=== PATIENT | male | born 1930 | race Caucasian/White ===

== ENCOUNTER 2016-05-25 16:30 | Emergency (ER) | payer OTHER ==
[~2016-05-25 16:30] MED LIST: BABY81CH PO; LISI-363 PO; METO50TA OR; PRAV10 OR; TOBRA.3%O RIGHT EYE; WARF6 PO
[2016-05-25 16:35] VITALS: BP 191/97; PULSE 83; RESP 16; TEMP 98; O2SAT 95
[2016-05-25 16:52] VITALS: RESP 18; O2SAT 96
--- NOTE | 2016-05-25 16:56 | PD ---
HPI Chief Complaint: Respiratory Distress Time Seen by Provider: 16:44 Travel History International Travel<30 days: No Contact w/Intl Traveler<30days: No Traveled to known affect area: No History of Present Illness HPI 86-year-old male presents with shortness of breath when he ambulates. He states that he thought it would get better this afternoon but when it didn't he took his blood pressure and given it was high and he felt short of breath he elected to come [facility] He states that he has no chest pain or other concurrent complaints. He denies any shortness of breath at rest. He denies other modifying factors. He states he had his Coumadin checked recently and it was okay. He states he follows with his primary regularly. He states he last saw his concrete vault maker about January and had an okay check. He states Dr. Langston is his concrete vault maker. PFSH Past Medical History Hx Anticoagulant Therapy: Yes Atrial Fibrillation: Yes Cardiovascular Problems: Yes High Cholesterol: Yes Diminished Hearing: No Hypertension: Yes Inguinal Hernia: Yes (LEFT SIDE 4 YEARS AGO) PNEUMOCCOCAL Vaccine (Year): 1 ?: Not Past Surgical History Abdominal Surgery: Yes (LEFT INGUINAL HERNIA) Tonsillectomy: Yes Other Surgery: Yes (SKIN CANCER ON NOSE) Social History Alcohol Use: No Tobacco Use: No Substance Use: No Allergies-Medications (Allergen,Severity, Reaction): Coded Allergies: Naprosyn (Verified Allergy, Severe, hives, 05/25/16) Aspirin (Verified Adverse Reaction, Severe, blood noted in urine had to stop taking a week ago, 05/25/16) CLIENT STATES HE HAS HAD NOPROBLEMS WITH ASPIRIN Reported Meds & Prescriptions Reported Meds & Active Scripts Active Tobrex Opth Soln (Tobramycin Sulfate) 0.3 % Soln 2 Drop RIGHT EYE Q4 7 Days Reported Baby Aspirin (Aspirin) 81 Mg Chw 81 Mg PO Metoprolol Tartrate 50 Mg Tab 50 Mg OR DAILY Pravastatin Sodium 10 Mg Tab 20 Mg OR DAILY Lisinopril 20 Mg Tab 20 Mg PO BID Coumadin (Warfarin Sodium) 6 Mg Tab 6 Mg PO DAILY Review of Systems Except as stated in HPI: all other systems reviewed are Neg Physical Exam Narrative GENERAL: Well-nourished, well-developed patient. SKIN: Warm and dry. HEAD: Normocephalic and atraumatic. EYES: No injection or drainage. ENT: No nasal drainage noted. NECK: Supple, trachea midline. CARDIOVASCULAR: irregular rate and rhythm RESPIRATORY: Breath sounds equal bilaterally at apices. No accessory muscle use. GASTROINTESTINAL: Abdomen soft, non-tender, nondistended. NEUROLOGICAL: Awake and alert. Moves all extremities. Normal speech. Data Data Last Documented VS Vital Signs Date Time Temp Pulse Resp B/P Pulse Ox O2 Delivery O2 Flow Rate FiO2 05/25/16 18:20 69 18 178/94 96 Room Air 05/25/16 16:35 98.0 Orders Complete Blood Count With Diff (05/25/16 16:51) Comprehensive Metabolic Panel (05/25/16 16:51) B-Type Natriuretic Peptide (05/25/16 16:51) Act Partial Throm Time (Ptt) (05/25/16 16:51) Prothrombin Time / Inr (Pt) (05/25/16 16:51) Magnesium (Mg) (05/25/16 16:51) Ckmb (Isoenzyme) Profile (05/25/16 16:51) Troponin I (05/25/16 16:51) Iv Access Insert/Monitor (05/25/16 16:51) Electrocardiogram (05/25/16 16:51) Ecg Monitoring (05/25/16 16:51) Oximetry (05/25/16 16:51) Chest, Single Ap (05/25/16 16:51) Sodium Chloride 0.9% Flush (Ns Flush) (05/25/16 17:00) CKMB (05/25/16 17:00) CKMB% (05/25/16 17:00) Labs Laboratory Tests Test 05/25/16 17:00 White Blood Count 5.8 TH/MM3 Red Blood Count 4.21 MIL/MM3 Hemoglobin 12.2 GM/DL Hematocrit 38.2 % Mean Corpuscular Volume 90.7 FL Mean Corpuscular Hemoglobin 29.1 PG Mean Corpuscular Hemoglobin 32.1 % Concent Red Cell Distribution Width 14.1 % Platelet Count 146 TH/MM3 Mean Platelet Volume 9.7 FL Neutrophils (%) (Auto) 50.9 % Lymphocytes (%) (Auto) 29.0 % Monocytes (%) (Auto) 12.3 % Eosinophils (%) (Auto) 6.8 % Basophils (%) (Auto) 1.0 % Neutrophils # (Auto) 3.0 TH/MM3 Lymphocytes # (Auto) 1.7 TH/MM3 Monocytes # (Auto) 0.7 TH/MM3 Eosinophils # (Auto) 0.4 TH/MM3 Basophils # (Auto) 0.1 TH/MM3 CBC Comment DIFF FINAL Differential Comment Prothrombin Time 23.7 SEC Prothromb Time International 2.1 RATIO Ratio Activated Partial 36.1 SEC Thromboplast Time Sodium Level 140 MEQ/L Potassium Level 4.3 MEQ/L Chloride Level 103 MEQ/L Carbon Dioxide Level 29.5 MEQ/L Anion Gap 8 MEQ/L Blood Urea Nitrogen 25 MG/DL Creatinine 1.33 MG/DL Estimat Glomerular Filtration 51 ML/MIN Rate Random Glucose 139 MG/DL Calcium Level 8.9 MG/DL Magnesium Level 2.0 MG/DL Total Bilirubin 2.8 MG/DL Aspartate Amino Transf 40 U/L (AST/SGOT) Alanine Aminotransferase 28 U/L (ALT/SGPT) Alkaline Phosphatase 102 U/L Total Creatine Kinase 279 U/L Creatine Kinase MB 3.1 NG/ML Troponin I 0.02 NG/ML Total Protein 7.3 GM/DL Albumin 3.7 GM/DL MDM Medical Decision Making Medical Screen Exam Complete: Yes Emergency Medical Condition: Yes Medical Record Reviewed: Yes (past history confirmed) Interpretation(s) EKG is A. fib at 80, no STEMI criteria, right bundle branch block Differential Diagnosis Anemia, renal failure, heart failure, anginal quibbling Narrative Course Will check blood work, chest x-ray, EKG and monitor Physician Communication Physician Communication dr traylor to follow bnp and likely dc as patient not wanting cardiac workup in hospital Bekah Mei MD May 25, 2016 16:56
[2016-05-25] MEDS ORDERED: SODIUM CHLORIDE 0.9% FLUSH 10 ML FLUSH IVF PRN (17:00)
[2016-05-25 17:18] LABS: BASOPHIL # 0.1 TH/MM3 (0-0.2); EOSINOPHIL # 0.4 TH/MM3 (0-0.4); EOSINOPHIL % 6.8 % (0.0-4.0); HEMATOCRIT 38.2 % (39.0-51.0); HEMO FLAGS DIFF FINAL; LYMPHOCYTE # 1.7 TH/MM3 (1.0-4.8); MEAN CELL VOLUME 90.7 FL (80.0-100.0); MEAN CORPUSCULAR HEMOGLOBIN 29.1 PG (27.0-34.0); MEAN CORPUSCULAR HGB CONC 32.1 % (32.0-36.0); MONO % 12.3 % (0.0-8.0); NEUT % 50.9 % (16.0-70.0); PLATELET COUNT 146 TH/MM3 (150-450); RED BLOOD COUNT 4.21 MIL/MM3 (4.50-5.90); RED CELL DISTRIBUTION WIDTH 14.1 % (11.6-17.2); WHITE BLOOD COUNT 5.8 TH/MM3 (4.0-11.0)
[2016-05-25 17:23] LABS: APTT (PATIENT) 36.1 SEC (24.3-30.1); INTERNATIONAL NORMALIZED RATIO 2.1 RATIO; PROTHROMBIN TIME - PATIENT 23.7 SEC (9.8-11.6)
[2016-05-25 17:43] VITALS: BP 155/82; PULSE 72; RESP 18; O2SAT 96
[2016-05-25 17:44] LABS: ANION GAP 8 MEQ/L (5-15); AST (GOT) 40 U/L (15-37); BICARBONATE 29.5 MEQ/L (21.0-32.0); BLOOD UREA NITROGEN 25 MG/DL (7-18); CHLORIDE 103 MEQ/L (98-107); GLOMERULAR FILTRATION RATE 51 ML/MIN (>89); POTASSIUM 4.3 MEQ/L (3.5-5.1); SODIUM (NA) 140 MEQ/L (136-145)
[2016-05-25 17:48] LABS: ALKALINE PHOSPHATASE 102 U/L (45-117); ALT (GPT) 28 U/L (12-78); CREATINE KINASE 279 U/L (39-308); TOTAL BILIRUBIN ADULT 2.8 MG/DL (0.2-1.0)
[2016-05-25 18:01] LABS: CKMB 3.1 NG/ML (0.5-3.6)
--- NOTE | 2016-05-25 18:01 | RADRPT ---
EXAM DATE/TIME: 05/25/2016 17:06 [facility] COMPARISON: No previous studies available for comparison. INDICATIONS : Shortness of breath. MEDICAL HISTORY : Hypertension. A-Fib SURGICAL HISTORY : None. ENCOUNTER: Initial ACUITY: 1 day PAIN SCORE: 0/10 LOCATION: Bilateral chest FINDINGS: A single view of the chest demonstrates the lungs to be symmetrically aerated without evidence of mas s, infiltrate or effusion. Minimal scarring in the lungs. The cardiomediastinal contours are unremar kable except atherosclerotic and mildly tortuous aorta. Osseous structures are intact. CONCLUSION: 1. Minimal scarring in the lungs. No effusion or pneumothorax. Mildly tortuous aorta. Jamal Keane MD on May 25, 2016 at 17:59 Board Certified Radiologist. This report was verified electronically.
[2016-05-25 18:20] VITALS: BP 178/94; PULSE 69; RESP 18; O2SAT 96
--- NOTE | 2016-05-25 19:15 | PD ---
Data Data Last Documented VS Vital Signs Date Time Temp Pulse Resp B/P Pulse Ox O2 Delivery O2 Flow Rate FiO2 05/25/16 19:36 73 21 175/89 96 Room Air 05/25/16 16:35 98.0 Orders Complete Blood Count With Diff (05/25/16 16:51) Comprehensive Metabolic Panel (05/25/16 16:51) B-Type Natriuretic Peptide (05/25/16 16:51) Act Partial Throm Time (Ptt) (05/25/16 16:51) Prothrombin Time / Inr (Pt) (05/25/16 16:51) Magnesium (Mg) (05/25/16 16:51) Ckmb (Isoenzyme) Profile (05/25/16 16:51) Troponin I (05/25/16 16:51) Iv Access Insert/Monitor (05/25/16 16:51) Electrocardiogram (05/25/16 16:51) Ecg Monitoring (05/25/16 16:51) Oximetry (05/25/16 16:51) Chest, Single Ap (05/25/16 16:51) Sodium Chloride 0.9% Flush (Ns Flush) (05/25/16 17:00) CKMB (05/25/16 17:00) CKMB% (05/25/16 17:00) Labs Laboratory Tests Test 05/25/16 17:00 White Blood Count 5.8 TH/MM3 Red Blood Count 4.21 MIL/MM3 Hemoglobin 12.2 GM/DL Hematocrit 38.2 % Mean Corpuscular Volume 90.7 FL Mean Corpuscular Hemoglobin 29.1 PG Mean Corpuscular Hemoglobin 32.1 % Concent Red Cell Distribution Width 14.1 % Platelet Count 146 TH/MM3 Mean Platelet Volume 9.7 FL Neutrophils (%) (Auto) 50.9 % Lymphocytes (%) (Auto) 29.0 % Monocytes (%) (Auto) 12.3 % Eosinophils (%) (Auto) 6.8 % Basophils (%) (Auto) 1.0 % Neutrophils # (Auto) 3.0 TH/MM3 Lymphocytes # (Auto) 1.7 TH/MM3 Monocytes # (Auto) 0.7 TH/MM3 Eosinophils # (Auto) 0.4 TH/MM3 Basophils # (Auto) 0.1 TH/MM3 CBC Comment DIFF FINAL Differential Comment Prothrombin Time 23.7 SEC Prothromb Time International 2.1 RATIO Ratio Activated Partial 36.1 SEC Thromboplast Time Sodium Level 140 MEQ/L Potassium Level 4.3 MEQ/L Chloride Level 103 MEQ/L Carbon Dioxide Level 29.5 MEQ/L Anion Gap 8 MEQ/L Blood Urea Nitrogen 25 MG/DL Creatinine 1.33 MG/DL Estimat Glomerular Filtration 51 ML/MIN Rate Random Glucose 139 MG/DL Calcium Level 8.9 MG/DL Magnesium Level 2.0 MG/DL Total Bilirubin 2.8 MG/DL Aspartate Amino Transf 40 U/L (AST/SGOT) Alanine Aminotransferase 28 U/L (ALT/SGPT) Alkaline Phosphatase 102 U/L Total Creatine Kinase 279 U/L Creatine Kinase MB 3.1 NG/ML Troponin I 0.02 NG/ML B-Type Natriuretic Peptide 462 PG/ML Total Protein 7.3 GM/DL Albumin 3.7 GM/DL MDM Supervised Visit with HARLEY: No Differential Diagnosis Patient signed out to me by previous provider. Please see associated no for further details. Intra-patient is a 86-year-old male with shortness of breath when ambulating, high blood pressure at home. No associated chest pain, no shortness of breath at rest. He sees Dr. Simon for cardiology. Previous provider had concern for possible new onset failure. EKG, laboratory workup and chest x-ray were unremarkable. BNP remains pending at the time this dictation patient signed out to me awaiting results of same. Patient wants to go home, and does not want any provocative testing. If BNP elevated, discharged to home with addition of Lasix outpatient cardiology follow-up. BNP was 462. Patient is requesting discharge to home. He will ambulate without any overt dyspnea. Narrative Course Diagnosis Primary Impression: Dyspnea Qualified Code: R06.09 - Dyspnea on exertion Referrals: Darshan Simon MD call for appointment Patient Instructions: Dyspnea (ED), General Instructions Additional Instruction: Continue home medications as prescribed. Call wirer helper for outpatient follow-up. Return to the ER for the warning signs discussed. Med/Other Pt SpecificInfo: No Change to Meds Disposition: 01 DISCHARGE HOME Condition: Stable Lisy Wei MD May 25, 2016 19:15
[2016-05-25 19:22] VITALS: BP 182/88; PULSE 62; RESP 20; O2SAT 96
[2016-05-25 19:36] VITALS: BP 175/89; PULSE 73; RESP 21; O2SAT 96
--- NOTE | 2016-05-26 10:40 | EKG ---
Date Performed: 05/25/2016 Time Performed: 16:59:13 PTAGE: 86 years EKG: ATRIAL FIBRILLATION RIGHT BUNDLE BRANCH BLOCK LEFT ANTERIOR FASCICULAR BLOCK ABNORMAL ECG PREVIOUS TRACING : 11/23/2009 11.55 DOCTOR: Justin Boyle Interpretating Date/Time 05/26/2016 10:36:44
== END 2016-05-25 19:59 | disposition home or self-care (01) ==
LOC: NEPE 16:30
DX: R06.09 Other forms of dyspnea (principal); I48.91 Unspecified atrial fibrillation; I10 Essential (primary) hypertension
CPT/HCPCS: 71010; 80053; 82550; 82552; 83735; 83880; 84484; 85025; 85610; 85730; 93005

== ENCOUNTER → 2016-09-23 | Outpatient (CLI) | payer OTHER ==
--- NOTE | 2016-10-01 09:40 | RSPPFT ---
DATE OF PROCEDURE: 09/23/16 COMMENTS: Spirometry with FVC of 2.1, FEV1 of 0.9, FEV1/FVC ratio at 44%. Slow vital capacity is 86% of predicted. TLC is 87%. Diffusion capacity is 52% and normal when corrected for alveolar volume. IMPRESSION: 1. Severe airways obstruction. 2. No evidence of airways restriction. 3. Positive and significant response to acutely inhaled bronchodilator.
== END ==
LOC: HRSP 10:21
PROVIDERS: ATTEND Nuclear Medicine Nuclear Cardiology
DX: I50.9 Heart failure, unspecified (principal); J98.8 Other specified respiratory disorders
CPT/HCPCS: 94060; 94726; 94729